=== PATIENT | female | born 2000 | race Hispanic/Latino ===

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

== ENCOUNTER 2021-04-04 11:45 | Emergency (ER) | payer OTHER ==
[~2021-04-04] VITALS: Ht 154.9 cm; Wt 81.6 kg
[2021-04-04] MEDS ORDERED: SOLU-MEDROL 125MG VIAL IM ONE (13:30)
[2021-04-04] MEDS ORDERED: FAMOTIDINE 20MG TAB PO ONE (13:30)
[2021-04-04 14:03] VITALS: BP 124/78
== END 2021-04-04 14:07 | disposition home or self-care (01) ==
LOC: EDH 11:45
DX: T78.49XA Other allergy, initial encounter (principal); R07.89 Other chest pain; R09.81 Nasal congestion; J45.909 Unspecified asthma, uncomplicated; Z79.52 Long term (current) use of systemic steroids; X58.XXXA Exposure to other specified factors, initial encounter
CPT/HCPCS: 96372; 99283; J2930

== ENCOUNTER 2021-04-24 02:06 | Emergency (ER) | payer OTHER ==
[2021-04-24] MEDS ORDERED: BENZ-39 PO (02:40)
[2021-04-24] MEDS ORDERED: ALBU8.5H8 IH (02:40)
[2021-04-24] MEDS ORDERED: DEXAMETHASONE 4 MG TAB PO ONE (03:00)
[2021-04-24] MEDS ORDERED: LIDOCAINE HCL 2% VISCOUS 15 ML UDCUP PO ONE (03:00)
[2021-04-24] MEDS ORDERED: MAG/ALUM/SIMETH 30 ML UDCUP PO ONE (03:00)
== END 2021-04-24 03:07 | disposition home or self-care (01) ==
LOC: EDH 02:06
DX: R05.9 Cough, unspecified (principal); J02.9 Acute pharyngitis, unspecified; J45.909 Unspecified asthma, uncomplicated; Z79.52 Long term (current) use of systemic steroids; Z79.899 Other long term (current) drug therapy
CPT/HCPCS: 99284; J8540